=== PATIENT | male | born 1935 | race African-American/Black ===

== ENCOUNTER 2016-08-14 10:54 | Emergency (ER) | payer OTHER ==
[~2016-08-14] VITALS: Ht 177.8 cm; Wt 118.0 kg
[~2016-08-14 10:54] MED LIST: LISI-360 PO; TAMS5CAP OR
[2016-08-14 10:55] VITALS: BP 148/80; PULSE 80; RESP 24; TEMP 98.2; O2SAT 96
[2016-08-14] MEDS ORDERED: TAMS0.4C4 PO (11:25)
[2016-08-14] MEDS ORDERED: LISI10TA3 PO (11:25)
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
[2016-08-14] MEDS ORDERED: DICL50TA3 PO (20:17)
[2016-08-14] MEDS ORDERED: CYCL1TAB29 PO (20:17)
== END 2016-08-14 13:52 | disposition home or self-care (01) ==
LOC: NEPD 10:54
DX: S43.401A Unspecified sprain of right shoulder joint, initial encounter (principal); M54.2 Cervicalgia; I10 Essential (primary) hypertension; Z87.39 Personal history of other diseases of the musculoskeletal system and connective tissue; Z87.09 Personal history of other diseases of the respiratory system; Z87.448 Personal history of other diseases of urinary system; V49.88XA Car occupant (driver) (passenger) injured in other specified transport accidents, initial encounter
CPT/HCPCS: 72072; 72125; 73030; 73060; 99284; L0150

== ENCOUNTER 2016-08-14 19:45 | Emergency (ER) | payer OTHER ==
[~2016-08-14] VITALS: Ht 177.8 cm; Wt 100.0 kg
[~2016-08-14 19:45] MED LIST changes: +LISI10TA3 PO; +TAMS0.4C4 PO
[2016-08-14 19:50] VITALS: BP 177/85; PULSE 70; RESP 16; TEMP 98.2; O2SAT 98
[2016-08-14] MEDS ORDERED: ACETAMINOPHEN/HYDROcodone 325 MG/5 MG TAB PO ONE (20:15)
[2016-08-14] MEDS ORDERED: DICL50TA3 PO (20:17)
[2016-08-14] MEDS ORDERED: CYCL1TAB29 PO (20:17)
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
== END 2016-08-14 20:44 | disposition home or self-care (01) ==
LOC: NEPD 19:45
DX: S43.401D Unspecified sprain of right shoulder joint, subsequent encounter (principal); M54.2 Cervicalgia; I10 Essential (primary) hypertension; Z87.39 Personal history of other diseases of the musculoskeletal system and connective tissue; Z87.09 Personal history of other diseases of the respiratory system; Z87.448 Personal history of other diseases of urinary system; V89.2XXD Person injured in unspecified motor-vehicle accident, traffic, subsequent encounter
CPT/HCPCS: 99284

== ENCOUNTER 2016-09-02 09:49 | Emergency (ER) | payer OTHER ==
[~2016-09-02 09:49] MED LIST changes: +CYCL1TAB29 PO; +DICL50TA3 PO; -LISI-360 PO; -TAMS5CAP OR
[2016-09-02 09:52] VITALS: BP 160/80; PULSE 80; RESP 20; TEMP 97.7; O2SAT 94
[2016-09-02] MEDS ORDERED: SODIUM CHLORID 0.9% 500 ML INJ 500 ML IV ONE (10:30)
[2016-09-02] MEDS ORDERED: CYCLOBENZAPRINE HCL 10 MG TAB PO ONE (10:30)
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
[2016-09-02 11:10] LABS: AUTOMATED NEUTROPHIL # 4.3 TH/MM3 (1.8-7.7); BASOPHIL # 0.1 TH/MM3 (0-0.2); BASOPHIL % 0.8 % (0.0-2.0); EOSINOPHIL # 0.3 TH/MM3 (0-0.4); EOSINOPHIL % 4.2 % (0.0-4.0); HEMATOCRIT 37.7 % (39.0-51.0); HEMO FLAGS DIFF FINAL; LYMPH % 20.3 % (9.0-44.0); LYMPHOCYTE # 1.3 TH/MM3 (1.0-4.8); MEAN CELL VOLUME 78.3 FL (80.0-100.0); MEAN CORPUSCULAR HEMOGLOBIN 24.8 PG (27.0-34.0); MEAN CORPUSCULAR HGB CONC 31.7 % (32.0-36.0); MONO % 9.6 % (0.0-8.0); NEUT % 65.1 % (16.0-70.0); PLATELET COUNT 195 TH/MM3 (150-450); RED BLOOD COUNT 4.82 MIL/MM3 (4.50-5.90); RED CELL DISTRIBUTION WIDTH 15.2 % (11.6-17.2); WHITE BLOOD COUNT 6.6 TH/MM3 (4.0-11.0)
[2016-09-02 11:26] LABS: ANION GAP 9 MEQ/L (5-15); AST (GOT) 17 U/L (15-37); BICARBONATE 25.5 MEQ/L (21.0-32.0); BLOOD UREA NITROGEN 13 MG/DL (7-18); CHLORIDE 109 MEQ/L (98-107); GLOMERULAR FILTRATION RATE 60 ML/MIN (>89); POTASSIUM 3.6 MEQ/L (3.5-5.1); SODIUM (NA) 143 MEQ/L (136-145)
[2016-09-02 11:32] LABS: ALKALINE PHOSPHATASE 69 U/L (45-117); ALT (GPT) 16 U/L (12-78); TOTAL BILIRUBIN ADULT 0.5 MG/DL (0.2-1.0)
[2016-09-02 12:33] VITALS: BP 146/75
--- NOTE | 2016-09-02 16:17 | EKG ---
Date Performed: 09/02/2016 Time Performed: 11:02:31 PTAGE: 81 years EKG: Sinus rhythm WITH FIRST DEGREE AV BLOCK WITH FREQUENT SUPRAVENTRICULAR PREMATURE COMPLEXES BORDERLINE LEFT AXIS D EVIATION ABNORMAL ECG PREVIOUS TRACING : 03/05/2014 14.33 Compared to prior tracing no significant change DOCTOR: Tania Ngo Interpretating Date/Time 09/02/2016 16:16:36
== END 2016-09-02 13:29 | disposition left against medical advice (07) ==
LOC: NEPD 09:49
DX: M25.511 Pain in right shoulder (principal); R42 Dizziness and giddiness; I44.0 Atrioventricular block, first degree; R94.31 Abnormal electrocardiogram [ECG] [EKG]; M13.80 Other specified arthritis, unspecified site; J45.909 Unspecified asthma, uncomplicated; M10.9 Gout, unspecified; I10 Essential (primary) hypertension; Z79.899 Other long term (current) drug therapy
CPT/HCPCS: 80053; 84484; 85025; 93005; 99284; J7040

== ENCOUNTER 2016-09-03 10:46 | Emergency (ER) | payer OTHER ==
[2016-09-03 10:49] VITALS: BP 164/78; PULSE 85; RESP 20; TEMP 98.5; O2SAT 99
== END 2016-09-03 13:17 | disposition left against medical advice (07) ==
LOC: NED 10:46
DX: Z04.1 Encounter for examination and observation following transport accident (principal); Z53.21 Procedure and treatment not carried out due to patient leaving prior to being seen by health care provider
CPT/HCPCS: 99281

== ENCOUNTER 2016-09-12 09:47 | Emergency (ER) | payer OTHER ==
[~2016-09-12] VITALS: Ht 177.8 cm; Wt 98.0 kg
[2016-09-12 09:51] VITALS: BP 180/82; PULSE 91; RESP 17; TEMP 98.2; O2SAT 98
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
== END 2016-09-12 10:40 | disposition home or self-care (01) ==
LOC: NEPD 09:47
DX: S20.212A Contusion of left front wall of thorax, initial encounter (principal); V89.2XXA Person injured in unspecified motor-vehicle accident, traffic, initial encounter
CPT/HCPCS: 99281

== ENCOUNTER 2017-03-31 12:06 | Emergency (ER) | payer OTHER ==
[~2017-03-31] VITALS: Ht 177.8 cm; Wt 97.5 kg
[2017-03-31 12:06] VITALS: BP 170/85; PULSE 87; RESP 16; TEMP 98.4; O2SAT 99
[~2017-03-31 12:06] MED LIST changes: -CYCL1TAB29 PO; -DICL50TA3 PO
--- NOTE | 2017-03-31 13:57 | PD ---
HPI Chief Complaint: Pain: Acute or Chronic Time Seen by Provider: 13:42 Travel History International Travel<30 days: No Contact w/Intl Traveler<30days: No Traveled to known affect area: No History of Present Illness HPI The patient is a 81-year-old [place] male presents emergency Department with right leg pain of 3 weeks' duration. The patient states his pain started 3 days ago with pain behind the right thigh that radiates up into the right gluteal area and down the right leg to the foot. The patient was evaluated at [facility] where he had an x-ray of the leg as well as an ultrasound performed that was negative for DVT. The patient continues to have pain is worse with certain positions and movements. The pain is sharp, occasionally associated with numbness of the right lower extremity. He denies any midline back pain. He denies any fever, chills, sweats, dysuria, or incontinence. Symptoms are moderate. PFSH Past Medical History Hx Anticoagulant Therapy: No Arthritis: Yes Asthma: Yes Cancer: No Chemotherapy: No Cerebrovascular Accident: No Diabetes: No Diminished Hearing: No Gout: Yes Hepatitis: No Hiatal Hernia: No Hypertension: Yes Kidney Stones: Yes Medical other: Yes (ARTHRITIS, PROSTATE ENLARGED) Musculoskeletal: Yes (SIATICA) Respiratory: No Pneumonia: Yes Thyroid Disease: No Past Surgical History Abdominal Surgery: Yes (HERNIA REPAIR) Eye Surgery: Yes (CATARACT SURGERY RT EYE, GLAUCOMA LT EYE) Genitourinary Surgery: Yes (MULTIPLE URINARY SURGERIES X 8, KIDNEY STONES) Hysterectomy: No Other Surgery: Yes Social History Alcohol Use: No Tobacco Use: No Substance Use: No Allergies-Medications (Allergen,Severity, Reaction): Coded Allergies: No Known Allergies (Unverified Adverse Reaction, Unknown, 03/31/17) Reported Meds & Prescriptions Reported Meds & Active Scripts Active Reported Tamsulosin (Tamsulosin HCl) 0.4 Mg Cap 0.4 Mg PO HS Lisinopril 10 Mg Tab 10 Mg PO DAILY Review of Systems Except as stated in HPI: all other systems reviewed are Neg General / Constitutional: No: Fever Gastrointestinal: No: Nausea, Vomiting Genitourinary: No: Dysuria, Incontinence Musculoskeletal: Positive: Pain, No: Weakness Skin: No Rash Neurologic: Positive: Paresthesia, Sensory Disturbance, No: Incontinence Physical Exam Narrative GENERAL: Awake, alert, pleasant 81-year-old male who appears his stated age and is in no acute respiratory distress. SKIN: Focused skin assessment warm/dry. HEAD: Atraumatic. Normocephalic. EYES: No injection or drainage. GASTROINTESTINAL: Abdomen soft, non-tender, nondistended. No rebound tenderness , guarding, rigidity. Back: No CVA tenderness. No tenderness over the thoracic or lumbar vertebrae. No tenderness of the sacroiliac. MUSCULOSKELETAL: Patient has pain over the right gluteal area that exacerbates his pain. Positive straight leg on the right at 30. Strength with flexion of the right hip and extension of the right knee is 505. Plantar flexion is 5 out of 5. Dorsi flexion is 5 out of 5. Positive distal pulses. NEUROLOGICAL: Awake and alert. No obvious cranial nerve deficits. Motor grossly within normal limits. Normal speech. Sensation is symmetric on the lower extremity, slightly diminished to soft touch over the right lower extremity when compared to the left. PSYCHIATRIC: Appropriate mood and affect; insight and judgment normal. Data Data Last Documented VS Vital Signs Date Time Temp Pulse Resp B/P (MAP) Pulse Ox O2 Delivery O2 Flow Rate FiO2 03/31/17 12:06 98.4 87 16 170/85 (113) 99 Room Air Orders Orders Morphine Inj (Morphine Inj) (03/31/17 14:00) Ketorolac Inj (Toradol Inj) (03/31/17 14:00) Diazepam (Valium) (03/31/17 14:00) MDM Medical Decision Making Medical Screen Exam Complete: Yes Emergency Medical Condition: Yes Medical Record Reviewed: Yes Differential Diagnosis Differential diagnosis includes herniated disc, spinal stenosis, sciatica, radiculopathy, DVT, PVD, muscle strain. Narrative Course Patient's physical examination is consistent with radiculopathy, most likely sciatica. 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 The patient was then monitored and reassessed. The patient was reevaluated at 3:20 PM. His symptoms had significant improved. The patient be discharged home with a Medrol Dosepak, [place], and Norflex. He is advised follow with his primary physician. Return if symptoms worsen or progress. Diagnosis Primary Impression: Sciatica Qualified Codes: M54.31 - Sciatica, right side Patient Instructions: General Instructions Additional Instructions: Medications as directed. Follow-up with her primary physician. Return if symptoms worsen or progress. Follow-up with her primary physician, you may benefit from outpatient physical therapy. Med/Other Pt SpecificInfo: Prescription(s) given Scripts Hydrocodone-Acetaminophen ([place]) 5 Mg-325 Mg Tab 1 TAB PO Q6H Y for PAIN, #12 TAB 0 Refills Prov: Kavin Bender MD 03/31/17 Orphenadrine ER 12 HR (Orphenadrine CR) 100 Mg Tab 100 MG PO Q12HR for Muscle Spasm, #20 TAB 0 Refills Prov: Kavin Bender MD 03/31/17 Methylprednisolone Dosepak (Medrol Dosepak) 4 Mg Dspk 4 MG PO DIRECTED, #1 DSPK 0 Refills Per Pharmacist direction Prov: Kavin Bender MD 03/31/17 Disposition: 01 DISCHARGE HOME Condition: Stable Kavin Bender MD Mar 31, 2017 13:57
[2017-03-31] MEDS ORDERED: DIAZEPAM 5 MG TAB PO ONE (14:00)
[2017-03-31] MEDS ORDERED: MORPHINE SULFATE 4 MG/ML INJ IV PUSH ONE (14:00)
[2017-03-31] MEDS ORDERED: KETOROLAC TROMETHAMINE 30 MG/ML (IVP) VIAL IV PUSH ONE (14:00)
[2017-03-31] MEDS ORDERED: NORC5TAB PO (15:31)
[2017-03-31] MEDS ORDERED: MEDR4PAK PO (15:31)
[2017-03-31] MEDS ORDERED: ORPH100T2 PO (15:31)
== END 2017-03-31 15:53 | disposition home or self-care (01) ==
LOC: NEPD 12:06
DX: M54.31 Sciatica, right side (principal); I10 Essential (primary) hypertension; J45.909 Unspecified asthma, uncomplicated; M19.90 Unspecified osteoarthritis, unspecified site; N40.0 Benign prostatic hyperplasia without lower urinary tract symptoms; M10.9 Gout, unspecified
CPT/HCPCS: 96374; 96375; 99284; J1885; J2270

== ENCOUNTER 2017-05-21 07:07 | Emergency (ER) | payer OTHER ==
[~2017-05-21] VITALS: Ht 177.8 cm; Wt 100.0 kg
[~2017-05-21 07:07] MED LIST changes: +MEDR4PAK PO; +NORC5TAB PO; +ORPH100T2 PO
[2017-05-21 07:11] VITALS: BP 165/83; PULSE 75; RESP 16; TEMP 98.8; O2SAT 99
--- NOTE | 2017-05-21 07:52 | PD ---
HPI Chief Complaint: Pain: Acute or Chronic Time Seen by Provider: 07:52 Travel History International Travel<30 days: No Contact w/Intl Traveler<30days: No Traveled to known affect area: No History of Present Illness HPI 81-year-old -[place] male presents emergency department with right knee pain. Patient states he was seen by Dr. Camara yesterday and had an injection in the right knee of some sort. Patient has history of gouty arthritis. Patient states he woke up this morning at 2 AM with extreme pain in the right knee. He denies numbness, tingling, or weakness. He denies back pain. He has no fever or chills. Pain is 10 out of 10. There is no significant swelling. There is some mild warmth and tenderness more in the posterior aspect than the anterior. He has difficulty walking secondary to pain. There is no history of injury to the area. He has no known drug allergies PFSH Past Medical History Hx Anticoagulant Therapy: No Arthritis: Yes Asthma: Yes Cancer: No Chemotherapy: No Cerebrovascular Accident: No Diabetes: No Diminished Hearing: No Gout: Yes Hepatitis: No Hiatal Hernia: No Hypertension: Yes Kidney Stones: Yes Musculoskeletal: Yes (SIATICA) Respiratory: No Pneumonia: Yes Thyroid Disease: No Past Surgical History Abdominal Surgery: Yes (HERNIA REPAIR) Eye Surgery: Yes (CATARACT SURGERY RT EYE, GLAUCOMA LT EYE) Genitourinary Surgery: Yes (MULTIPLE URINARY SURGERIES X 8, KIDNEY STONES) Hysterectomy: No Other Surgery: Yes Social History Alcohol Use: No Tobacco Use: No Substance Use: No Allergies-Medications (Allergen,Severity, Reaction): Coded Allergies: No Known Allergies (Unverified Adverse Reaction, Unknown, 03/31/17) Reported Meds & Prescriptions Reported Meds & Active Scripts Active Tramadol (Tramadol HCl) 50 Mg Tab 50 Mg PO Q6H PRN Prednisone (48) 5 mg tab Dose Pack (Prednisone) 5 Mg Dspk 5 Mg PO DIRECTED [place] (Hydrocodone-Acetaminophen) 5 Mg-325 Mg Tab 1 Tab PO Q6H PRN Orphenadrine CR (Orphenadrine Citrate) 100 Mg Tab 100 Mg PO Q12HR Medrol Dosepak (Methylprednisolone) 4 Mg Dspk 4 Mg PO DIRECTED Per Pharmacist direction Reported Tamsulosin (Tamsulosin HCl) 0.4 Mg Cap 0.4 Mg PO HS Lisinopril 10 Mg Tab 10 Mg PO DAILY Review of Systems Except as stated in HPI: all other systems reviewed are Neg General / Constitutional: No: Fever Eyes: No: Visual changes HENT: No: Headaches Cardiovascular: No: Chest Pain or Discomfort Respiratory: No: Shortness of Breath Gastrointestinal: No: Abdominal Pain Genitourinary: No: Dysuria Musculoskeletal: Positive: Arthralgias, Limited ROM, Pain (See history of present illness) Skin: No Rash Neurologic: No: Weakness Psychiatric: No: Depression Endocrine: No: Polydipsia Hematologic/Lymphatic: No: Easy Bruising Physical Exam Narrative GENERAL: Patient appears in mild to moderate distress per SKIN: Warm and dry. Normal color. Normal turgor. No erythema. No rash HEAD: Atraumatic. Normocephalic. EYES: Pupils equal and round. No scleral icterus. No injection or drainage. ENT: No nasal bleeding or discharge. Mucous membranes pink and moist. Pharynx is clear. Airways patent NECK: Trachea midline. Supple and nontender. CARDIOVASCULAR: Regular rate and rhythm. RESPIRATORY: No accessory muscle use. Clear to auscultation. Breath sounds equal bilaterally. GASTROINTESTINAL: Abdomen soft, non-tender, nondistended. Hepatic and splenic margins not palpable. MUSCULOSKELETAL: Extremities without clubbing, cyanosis, or edema. No obvious deformities. Right knee appears unremarkable. No significant effusion is noted. Mild increased warmth palpated. No crepitus. Exam is limited secondary to pain. NEUROLOGICAL: Awake and alert. No obvious cranial nerve deficits. Motor grossly within normal limits. Five out of 5 muscle strength in the arms and legs. Normal speech. PSYCHIATRIC: Appropriate mood and affect; insight and judgment normal. Data Data Last Documented VS Vital Signs Date Time Temp Pulse Resp B/P (MAP) Pulse Ox O2 Delivery O2 Flow Rate FiO2 05/21/17 08:21 16 05/21/17 08:08 78 100 Room Air 05/21/17 08:00 180/86 (117) 05/21/17 07:11 98.8 Orders Orders Iv Access Insert/Monitor (05/21/17 07:58) Ecg Monitoring (05/21/17 07:58) Oximetry (05/21/17 07:58) Morphine Inj (Morphine Inj) (05/21/17 08:00) Sodium Chloride 0.9% Flush (Ns Flush) (05/21/17 08:00) Dexamethasone Inj (Decadron Inj) (05/21/17 08:00) Knee, Complete (4vws) (05/21/17 08:00) Ice/Cold Pack (05/21/17 08:00) Ed Discharge Order (05/21/17 09:18) [facility] Medical Decision Making Medical Screen Exam Complete: Yes Emergency Medical Condition: Yes Medical Record Reviewed: Yes Differential Diagnosis Right knee pain. Arthrosis. Possible gouty arthritis. Narrative Course Patient is felt to be medically stable at time of exam. IV is started patient is given 2 mg morphine IV as well as 10 mg Decadron IV. X-ray of the right knee is ordered. X-ray shows no acute process. Patient will be treated with prednisone Dosepak as prescribed. Patient also given tramadol 50 mg 1 every 6 hours as needed pain #20. Patient to follow-up with his primary care physician or Dr. Camara, the orthopedic if symptoms did not improve. Patient can return to emergency department if necessary. Diagnosis Primary Impression: Arthropathy of right knee Additional Impression: Gout Qualified Codes: M10.9 - Gout, unspecified Patient Instructions: General Instructions, Gout (ED), Osteoarthritis (ED) Additional Instructions: Patient will be treated with prednisone Dosepak as prescribed. Patient also given tramadol 50 mg 1 every 6 hours as needed pain #20. Patient to follow-up with his primary care physician or Dr. Camara, the orthopedic if symptoms did not improve. Patient can return to emergency department if necessary. Med/Other Pt SpecificInfo: Prescription(s) given Scripts Tramadol (Tramadol) 50 Mg Tab 50 MG PO Q6H Y for PAIN, #20 TAB 0 Refills Prov: Marybeth Thao MD 05/21/17 Prednisone (48) 5 mg tab Dose Pack (Prednisone (48) 5 mg tab Dose Pack) 5 Mg Dspk 5 MG PO DIRECTED for Inflammation, #1 DSPK 0 Refills Prov: Marybeth Thao MD 05/21/17 Disposition: 01 DISCHARGE HOME Condition: Stable Gurvinder Casillas May 21, 2017 07:52
[2017-05-21 08:00] VITALS: BP 180/86; PULSE 72; RESP 16; O2SAT 100
[2017-05-21] MEDS ORDERED: SODIUM CHLORIDE 0.9% FLUSH 10 ML FLUSH IV FLUSH PRN (08:00)
[2017-05-21] MEDS ORDERED: MORPHINE SULFATE 4 MG/ML INJ IV PUSH ONE (08:00)
[2017-05-21] MEDS ORDERED: DEXAMETHASONE SOD PHOS 20 MG/5 ML VIAL IV PUSH ONE (08:00)
[2017-05-21 08:08] VITALS: PULSE 78; RESP 16; O2SAT 100
[2017-05-21] MEDS ORDERED: TRAM50TA PO (08:17)
[2017-05-21] MEDS ORDERED: PRED5PAK2 PO (08:17)
[2017-05-21 08:21] VITALS: RESP 16
--- NOTE | 2017-05-21 09:04 | RADRPT ---
EXAM DATE/TIME: 05/21/2017 08:44 [facility] COMPARISON: No previous studies available for comparison. INDICATIONS : Pain posterior knee, with no known injury. MEDICAL HISTORY : None. SURGICAL HISTORY : None. ENCOUNTER: Initial ACUITY: 1 day PAIN SCORE: 10/10 LOCATION: Right knee. FINDINGS: Four view examination of the right knee demonstrates no evidence of fracture or dislocation. Bony mi neralization is normal. The articular surfaces are intact. The suprapatellar soft tissues have a no rmal configuration. CONCLUSION: No evidence of acute process or significant arthropathy. Harvey Luther MD on May 21, 2017 at 9:02 Board Certified Radiologist. This report was verified electronically.
[2017-05-21] MEDS ORDERED: ACETAMINOPHEN/HYDROcodone 325 MG/5 MG TAB PO ONE (09:45)
[2017-05-31] MEDS ORDERED: CEPH-459 PO (11:30)
[2017-05-31] MEDS ORDERED: PERC5TAB12 PO (11:30)
== END 2017-05-21 10:05 | disposition home or self-care (01) ==
LOC: NEPD 07:07
DX: M12.861 Other specific arthropathies, not elsewhere classified, right knee (principal); M10.9 Gout, unspecified; I10 Essential (primary) hypertension
CPT/HCPCS: 73564; 96374; 96375; 99284; J1100; J2270

== ENCOUNTER → 2017-05-31 | Day surgery (SDC) | payer OTHER ==
[~2017-05-31] VITALS: Ht 177.8 cm; Wt 89.3 kg
[~2017-05-31] MED LIST changes: +*morphine SULFATE 4 MG/ML PERIprocedure ONLY ONE; +CEPH-459 PO; +CHLORHEXIDINE GLUCONATE 2 % 1 PACK (2 CLOTHS) TOPICAL PRN; +DEXAMETHASONE SOD PHOS 4 MG/ML VIAL IV ONE; +DO NOT ADM ANY ANTICOAGULANT DRUGS PRN; +GLYCOPYRROLATE 1 MG/5 ML SYRINGE IV PUSH ONE; +INSULIN HUMAN REGULAR 1,000 UNITS/10 ML VIAL SQ PRN; +LACTATED RINGER'S 1000 ML IV PRN; +LIDOCAINE HCL 1% PF 5 ML SYRINGE OTHER ONE; -MEDR4PAK PO; +METOPROLOL TARTRATE 25 MG TAB PO PRN; -NORC5TAB PO; +ONDANSETRON HCL 4 MG/2 ML VIAL IV ONE; +ONDANSETRON HCL 4 MG/2 ML VIAL IV PUSH PRN; -ORPH100T2 PO; +PERC5TAB12 PO; +POVIDONE IODINE 5% (ANTISEPSIS KIT) 4 APPLICATIONS EACH NARE PRN; +PROPOFOL 200 MG/20 ML AMP IV ONE; +SODIUM CHLORID 0.9% 500 ML IV PRN; +TRAM50TA PO; +ceFAZolin 2 GM in NS 100 ML IV SCH; +ceFAZolin INJ 1,000 MG VIAL IV ONE; +oxyCODONE/ACETAMINOPHEN 5 MG/325 MG TAB PO PRN
[2017-05-31 09:13] LABS: AUTOMATED NEUTROPHIL # 4.7 TH/MM3 (1.8-7.7); BASOPHIL # 0.1 TH/MM3 (0-0.2); BASOPHIL % 1.3 % (0.0-2.0); EOSINOPHIL # 0.1 TH/MM3 (0-0.4); EOSINOPHIL % 1.6 % (0.0-4.0); HEMATOCRIT 39.8 % (39.0-51.0); LYMPH % 15.2 % (9.0-44.0); MEAN CELL VOLUME 80.1 FL (80.0-100.0); MEAN CORPUSCULAR HEMOGLOBIN 26.1 PG (27.0-34.0); MEAN CORPUSCULAR HGB CONC 32.6 % (32.0-36.0); MEAN PLATELET VOLUME 9.5 FL (7.0-11.0); MONOCYTE # 0.6 TH/MM3 (0-0.9); NEUT % 72.9 % (16.0-70.0); PLATELET COUNT 181 TH/MM3 (150-450); RED BLOOD COUNT 4.97 MIL/MM3 (4.50-5.90); RED CELL DISTRIBUTION WIDTH 15.1 % (11.6-17.2); WHITE BLOOD COUNT 6.5 TH/MM3 (4.0-11.0)
--- NOTE | 2017-05-31 11:24 | PD.OP ---
Operative Report Date of Surgery: May 31, 2017 Preoperative Diagnosis: (1) Urethral stricture Postoperative Diagnosis: (1) Urethral stricture Procedure: Cystoscopy, direct visual internal urethrotomy and percutaneous placement of a suprapubic catheter. Anesthesia: General Surgeon: Carlos Laird Moss Gatherer(s): None Operation and Findings: Indication for procedures: Case of a pleasant 81-year-old gentleman with a history of recurrent urethral stricture formation who presents today for cystoscopy and placement of a suprapubic catheter. Operative procedures in detail: Patient was brought to the operating room suite and placed supine on the OR table. He was then placed under general anesthesia. He was then repositioned in the dorsal lithotomy position and prepped and draped in normal sterile fashion. After appropriate timeout was undertaken I proceeded with attempted cystoscopic evaluation utilizing the rigid cystoscope with the 19 [place] sheath and 30 lens. The patient was noted to have a bulbar urethral stricture that precluded passage of the cystoscope. A sensor 0.035 wire was then advanced through the stricture and the cystoscope was withdrawn. The visual internal urethrotome device with the straight blade was then utilized and a direct visual internal urethrotomy was accomplished by cutting at the 12 o'clock position. Once this was accomplished the cystoscope was reintroduced and I was able to fully advanced the scope into the urinary bladder. The prostatic urethra was obstructing with enlargement of the lateral and median lobes. The urinary bladder did not demonstrate any bladder mucosal lesions, calculi or diverticula formation. The bladder was then drained and subsequently filled with irrigation solution with a total volume of approximately 500 cc. I next made a small half centimeter incision in the midline approximately 1-1/2 cm superior to the symphysis pubis. A spinal needle was next utilized to determine the proper trajectory of the suprapubic cannula. The spinal needle could be seen perforating the anterior bladder wall. It was then withdrawn and the suprapubic cannula with obturator in place was then inserted following the predetermined trajectory noted from the spinal needle passage. This cannula could be seen protruding through the anterior bladder wall and the obturator was withdrawn. A 16 [place] Weaver catheter was then advanced through the cannula and the cannula peeled away. 10 cc was instilled into this Weaver balloon. I then placed a 18 [place] Weaver in standard fashion from below over the previously placed sensor wire. 10 cc was instilled into this balloon as well. The suprapubic catheter was secured to the anterior abdominal wall with a single 0 silk suture. A sterile dressing was placed over the suprapubic site. The patient tolerated the procedures without complications and was transferred to the PACU in satisfactory condition. Carlos Laird MD May 31, 2017 11:24
[2017-05-31 13:39] VITALS: BP 170/88; PULSE 68; RESP 18; TEMP 97.3; O2SAT 97
== END | disposition home or self-care (01) ==
LOC: HSDC 07:56
PROVIDERS: ATTEND Urology
DX: N35.9 Urethral stricture, unspecified (principal); I10 Essential (primary) hypertension
CPT/HCPCS: 00910; 51102; 52276; 85025; C1769; J0690; J1100; J2270; J2405; J3010